=== PATIENT | female | born 1965 | race Caucasian/White ===

== ENCOUNTER 2019-04-27 14:25 | Observation (INO) | payer BC ==
[2019-04-27] MEDS ORDERED: Sodium Chloride 0.9% 1000 ML 1,000 ML IV STA ×2 (14:58)
[2019-04-27] MEDS ORDERED: NovoLIN R IV ONE (14:58)
[2019-04-27] MEDS ORDERED: NOVOLIN R INSULIN (FOR DRIPS)** 100 UNITS in Sodium Chloride 0.9% 100 ML IVPB 100 ML IV SCH (15:00)
[2019-04-27] MEDS ORDERED: Sodium Chloride 0.9% 1000 ML 2,000 ML ONE (15:04)
[2019-04-27] MEDS ORDERED: NovoLIN R ONE (15:04)
[2019-04-27 15:13] LABS: VBG BASE EXCESS 1.6 (-2.0-2.0); VBG HCO3- 27.7 meq/L (22-28); VBG HEMOGLOBIN 15.6; VBG O2 SATURATION 76.2 (95-100); VBG POTASSIUM 4.2 (3.5-5.1); VBG pH 7.37 (7.32-7.42)
[2019-04-27 15:15] LABS: VBG CARBOXYHEMOGLOBIN 12.3 % T HGB (0.0-6.9)
[2019-04-27 15:18] LABS: MAGNESIUM 1.7 mg/dL (1.6-2.3); PHOSPHOROUS 5.3 mg/dL (2.5-4.5)
[2019-04-27] MEDS ORDERED: ROCEPHIN 1 Gm-D5w 50 ml Bag** 1 G/50 ML IVPB IV STA (15:52)
[2019-04-27] MEDS ORDERED: Zithromax 500 MG/ 250 ML NaCl Premix 500 MG/250 ML IVPB IV STA (15:52)
[2019-04-27] MEDS ORDERED: ROCEPHIN 1 Gm-D5w 50 ml Bag** 1 G/50 ML IVPB IV ONE (16:02)
[2019-04-27] MEDS ORDERED: Zithromax 500 MG/ 250 ML NaCl Premix 500 MG/250 ML IVPB IV ONE (16:02)
--- NOTE | 2019-04-27 16:11 | ERPHSYRPT ---
- History of Present Illness Time Seen by Provider: 04/27/19 14:45 Source: patient Exam Limitations: clinical condition (P) Patient Subjective Stated Complaint: went to dr. nobles for check up today and had blood work done. was told her blood sugar was very high. Triage Nursing Assessment: ambulated to room per self. skin w/d, color normal, resp easy. a/o times four. Physician History: PATIENT WITH A HISTORY OF TYPE 2 DIABETES, DIAGNOSED SINCE 2011 AND HAS BEEN OUT OF HER INSULIN OVER PAST YEAR, 38 [employer] YEAR [employer] COMPLAINS OF POLYDIPSIA AND POLYURIA OVER THE PAST SEVERAL DAYS. ALSO COMPLAINS OF A PRODUCTIVE COUGH YELLOW SPUTUM. DENIES FEVER, CHILLS DYSPNEA, NAUSEA OR EMESIS. Timing/Duration: day(s) Severity: severe Modifying Factors: Improves With: nothing Associated Symptoms: cough, other (POLYURIA, POLYDIPSIA) Allergies/Adverse Reactions: No Known Drug Allergies Allergy (Verified 04/27/19 14:43) Home Medications: No Reportable Medications [No Reported Medications] 04/27/19 [History] Hx Tetanus, Diphtheria Vaccination/Date Given: Yes Hx Influenza Vaccination/Date Given: Yes Hx Pneumococcal Vaccination/Date Given: No - Review of Systems Constitutional: No Fever, No Chills Eyes: No Symptoms Ears, Nose, & Throat: No Symptoms Respiratory: Cough, No Dyspnea Cardiac: No Chest Pain, No Edema, No Syncope Abdominal/Gastrointestinal: No Abdominal Pain, No Nausea, No Vomiting, No Diarrhea Genitourinary Symptoms: Other (POLYURIA\), No Dysuria Musculoskeletal: No Back Pain, No Neck Pain Skin: No Rash Neurological: No Dizziness, No Focal Weakness, No Sensory Changes Psychological: No Symptoms Endocrine: No Symptoms All Other Systems: Reviewed and Negative - Past Medical History Pertinent Past Medical History: Yes Cardiac History: Hypertension Respiratory History: COPD Endocrine Medical History: Diabetes Type II - Past Surgical History Past Surgical History: No - Social History Smoking Status: Current every day smoker How long have you smoked: 43 Exposure to second hand smoke: Yes Drug Use: none Patient Lives Alone: No - Female History Hx Now: No - Nursing Vital Signs Nursing Vital Signs: Initial Vital Signs Temperature 97.8 F 04/27/19 14:35 Pulse Rate 91 H 04/27/19 14:35 Respiratory Rate 16 04/27/19 14:35 Blood Pressure 167/98 04/27/19 14:35 O2 Sat by Pulse Oximetry 95 04/27/19 14:35 Pain Scale Pain Intensity 0 - Physical Exam General Appearance: no apparent distress, alert Eye Exam: PERRL/EOMI, eyes nml inspection Ears, Nose, Throat Exam: normal ENT inspection, TMs normal, pharynx normal, moist mucous membranes Neck Exam: normal inspection, non-tender, supple, full range of motion Respiratory Exam: normal breath sounds, lungs clear, No respiratory distress Cardiovascular Exam: regular rate/rhythm, normal heart sounds, normal peripheral pulses Gastrointestinal/Abdomen Exam: soft, normal bowel sounds, No tenderness, No mass Back Exam: normal inspection, normal range of motion, No CVA tenderness, No vertebral tenderness Extremity Exam: normal inspection, normal range of motion, pelvis stable Neurologic Exam: alert, oriented x 3, cooperative, normal mood/affect, nml cerebellar function, nml station & gait, sensation nml, No motor deficits Skin Exam: normal color, warm, dry, No rash Lymphatic Exam: No adenopathy SpO2 Interpretation: normal SpO2: 91 - Radiology Exams Chest X-ray Interpretation: Interpreted by me (COPD, NO EVIDENCE OF INFILTRATES) Ordered Tests: Active Orders 24 hr Category Date Time Status CHEST 1 VIEW (PORTABLE) Stat Exams 04/27/19 15:34 Completed BLOOD CULTURE Stat Lab 04/27/19 16:10 Received Glucose Stat Lab 04/27/19 14:58 Completed MAGNESIUM Stat Lab 04/27/19 14:58 Completed PHOSPHOROUS Stat Lab 04/27/19 14:58 Completed VENOUS BLOOD GAS Stat Lab 04/27/19 15:03 Completed Transfer Order Routine Transfer 04/27/19 Ordered Medication Summary Generic Name Dose Route Start Last Admin Trade Name Freq PRN Reason Stop Dose Admin Insulin Human Regular 100 101 mls @ 5.05 mls/hr 04/27/19 15:00 04/27/19 15:20 units/ Sodium Chloride IV 05/27/19 14:59 5 units/hr .Q20H JENNIFER 5.05 mls/hr Administration 5 UNITS/HR Discontinued Medications Generic Name Dose Route Start Last Admin Trade Name Freq PRN Reason Stop Dose Admin Sodium Chloride 1,000 mls @ 999 mls/hr 04/27/19 14:58 04/27/19 16:19 Sodium Chloride 0.9% 1000 Ml IV 04/27/19 15:58 Infused .Q1H1M STA Infusion Sodium Chloride 1,000 mls @ 999 mls/hr 04/27/19 14:58 04/27/19 16:35 Sodium Chloride 0.9% 1000 Ml IV 04/27/19 15:58 Infused .Q1H1M STA Infusion Sodium Chloride Confirm 04/27/19 15:04 Sodium Chloride 0.9% 1000 Ml Administered 04/27/19 15:05 Dose 2,000 mls @ ud .ROUTE .STK-MED ONE Ceftriaxone Sodium/Dextrose 1 g in 50 mls @ 100 mls/hr 04/27/19 15:52 16:07 Rocephin 1 Gm-D5w 50 Ml Bag IV 04/27/19 16:21 100 ml/hr STAT STA 100 mls/hr Administration Azithromycin 500 mg in 250 mls @ 250 mls/hr 04/27/19 15:52 Zithromax 500 Mg/ 250 Ml Nacl Premix IV 04/27/19 16:51 STAT STA Azithromycin Confirm 04/27/19 16:02 Zithromax 500 Mg/ 250 Ml Nacl Premix Administered 04/27/19 16:03 Dose 500 mg in 250 mls @ ud IV .STK-MED ONE Ceftriaxone Sodium/Dextrose Confirm 04/27/19 16:02 Rocephin 1 Gm-D5w 50 Ml Bag Administered 04/27/19 16:03 Dose 1 g in 50 mls @ ud IV .STK-MED ONE Insulin Human Regular 10 unit 04/27/19 14:58 04/27/19 15:06 Novolin R IV 04/27/19 14:59 10 unit STAT ONE Administration Insulin Human Regular Confirm 04/27/19 15:04 Novolin R Administered 04/27/19 15:05 Dose 10 unit .ROUTE .STK-MED ONE Lab/Rad Data: Laboratory Results 04/27/19 04/27/19 Range/Units 15:03 14:58 pO2/FiO2 Ratio 21.0 % VBG pH 7.37 (7.32-7.42) VBG pCO2 at Pat Temp 48 (42-55) mm/Hg VBG pO2 at Pat Temp 30 (25-40) mm/Hg VBG HCO3 27.7 (22-28) meq/L VBG O2 Sat (Marvin) 76.2 L (95-100) VBG Base Excess 1.6 (-2.0-2.0) VBG Hemoglobin 15.6 VBG Carboxyhemoglobin 12.3 H* (0.0-6.9) % T HGB POC Potassium 4.2 (3.5-5.1) Glucose 864 H* (74-106) mg/dL Phosphorus 5.3 H (2.5-4.5) mg/dL Magnesium 1.7 (1.6-2.3) mg/dL - Progress Progress: improved Progress Note: 04/27/19 16:11, GLUCOSE UPON ARRIVAL TO EMERGENCY ROOM -864, VENOUS PH-7.34 SERUM GLUCOSE 981, GIVEN IV HUMULIN INSULIN 10 UNITS IV, FOLLOWED BY HUMULIN REGULAR INSULIN INFUSION 5UNITS/HR, AFTER 2 SETS OF BLOOD CULTURES ADMINISTERED ROCEPHIN 1GM AND ZITHROMAX 500MG IVPB 04/27/19 17:[address] Mckeon (DISCUSSED WITH DR MCKEON AT 1705 FOR OBSERVATION) - Departure Departure Disposition: Observation Clinical Impression: HYPERGLYCEMIA HYPEROSMOLARIC NONKETOIC, EXACERBATION COPD Condition: Stable Critical Care Time: Yes Critical Care Time(excluding separately billable procedures): ___ minutes (30) Referrals: SHIV NOBLES [Primary Care Provider] -
--- NOTE | 2019-04-27 16:14 | XRAY ---
Indication: Cough. High blood sugar. Comparison: September 29, 2016. Portable chest demonstrates normal heart and lungs. Bony thorax intact again with mild degenerative changes. No new/acute findings.
[2019-04-27] MEDS ORDERED: Sodium Chloride 0.9% 1000 ML 1,000 ML ONE (17:55)
[2019-04-27] MEDS ORDERED: Sodium Chloride 0.9% 1000 ML 1,000 ML IV SCH ×2 (18:00→18:14)
[2019-04-27] MEDS ORDERED: TYLENOL 325 MG PO PRN (18:14)
[2019-04-27 18:51] LABS: ANION GAP 11.3 MEQ/L (5-15); BLOOD UREA NITROGEN 19 mg/dL (7-17); CHLORIDE 103 mmol/L (98-107); Calcium 8.3 mg/dL (8.4-10.2); Carbon Dioxide 23 mmol/L (22-30); Creatinine 1 0.38 mg/dL (0.52-1.04); Glucose 331 mg/dL (74-106); Potassium 3.2 mmol/L (3.5-5.1); SODIUM 133 mmol/L (137-145)
[2019-04-27] MEDS: DUONEB 0.5-3 MG/3 ml Neb IH SCH ×2 (19:42→23:32)
[2019-04-27 22:45] LABS: ANION GAP 8.4 MEQ/L (5-15); BLOOD UREA NITROGEN 17 mg/dL (7-17); CHLORIDE 105 mmol/L (98-107); Calcium 8.1 mg/dL (8.4-10.2); Carbon Dioxide 26 mmol/L (22-30); Creatinine 1 0.42 mg/dL (0.52-1.04); Glucose 267 mg/dL (74-106); Potassium 3.8 mmol/L (3.5-5.1); SODIUM 136 mmol/L (137-145)
[2019-04-28] MEDS ORDERED: Lantus Insulin SQ SCH (01:30)
[2019-04-28] MEDS ORDERED: Dextrose 5% -0.45 NaCl 1000 ML 1,000 ML IV SCH (01:30)
[2019-04-28 03:28] LABS: Hematocrit 37.9 % (35-47); Hemoglobin 13.2 gm/dl (12.0-16.0); Mean Cell Volume 90.5 fl (78-100); Mean Corpuscular Hemoglobin 31.5 pg (26-32); Mean Corpuscular Hgb Concent. 34.8 g/dl (32-36); Mean Platelet Volume 9.3 fl (6-9.5); Platelet Count 325 K/mm3 (150-450); Red Blood Count 4.19 M/mm3 (4.1-5.4); Red Cell Distribution Width 12.6 % (11.5-14.0); White Blood Count 8.1 K/mm3 (4.0-10.5)
[2019-04-28 03:40] LABS: ANION GAP 7.7 MEQ/L (5-15); BLOOD UREA NITROGEN 16 mg/dL (7-17); CHLORIDE 107 mmol/L (98-107); Calcium 7.9 mg/dL (8.4-10.2); Carbon Dioxide 24 mmol/L (22-30); Creatinine 1 0.32 mg/dL (0.52-1.04); Glucose 159 mg/dL (74-106); Potassium 3.5 mmol/L (3.5-5.1); SODIUM 136 mmol/L (137-145)
[2019-04-28] MEDS: DUONEB 0.5-3 MG/3 ml Neb IH SCH ×2 (03:42→07:11)
[2019-04-28 06:42] LABS: BLOOD UREA NITROGEN 14 mg/dL (7-17); CHLORIDE 108 mmol/L (98-107); Calcium 8.1 mg/dL (8.4-10.2); Carbon Dioxide 24 mmol/L (22-30); Creatinine 1 0.32 mg/dL (0.52-1.04); Glucose 183 mg/dL (74-106); Potassium 3.5 mmol/L (3.5-5.1); SODIUM 136 mmol/L (137-145)
[2019-04-28] MEDS: NovoLOG Insulin SQ PRN ×2 (08:50→11:50)
--- NOTE | 2019-04-28 09:05 | PCM.SSS ---
History of Present Illness - Chief Complaint Chief Complaint: HYPERGLYCEMIC HYPEROSMOLARIC NON-KETOC COMA History of Present Illness: is a 54 year old female pt of mine from [facility] with DM II uncontrolled, diabetic peripheral neuropathy, and HTN who was admitted last night through ER with BS > 800. She had been without insurance and off insulin for a year; came to see me in office yesterday and labs were ordered. When BS was elevated she was directed to ER. She had not been doing accuchecks at home because it always read "HI" - she lost 34 lb in the past few months and has had polyuria and polydipsia at home. She was started on some rocephin/zithromax for her cough; will go ahead and treat as likely COPD exacerbation. Overnight her BS corrected on the insulin drip; was < 200 this morning so IV fluids changed to D5 1/2 NS at 100cc/hr. Will stop that now. She is very concerned about getting to work tonight; her electrolytes have been stable. Started levemir this morning, will start at 20 units BID and go from there, with humalog prn sliding scale. She is to f/u with me next week; had an apt scheduled with me in 3-4 wks and I would like her to keep that as well. - Review of Systems Constitutional: Weight Loss Ears, Nose, & Throat: Nose Congestion, Nose Discharge Respiratory: Cough Abdominal/Gastrointestinal: Appetite Changes Genitourinary Symptoms: Frequency Neurological: Parasthesia Psychological: Anxiety All Other Systems: Reviewed and Negative Medications & Allergies Home Medications: Home Medication List Albuterol Sulfate [Ventolin Hfa] 18 gm IH QID PRN #1 [email or web address] 04/28/19 [Rx] Doxycycline Hyclate 100 mg PO BID #18 tablet 04/28/19 [Rx] Allergies/Adverse Reactions: Allergies Allergy/AdvReac Type Severity Reaction Status Date / Time No Known Drug Allergies Allergy Verified 04/27/19 14:43 - Past Medical History Past Medical History: Yes Neurological History: No Pertinent History ENT History: No Pertinent History Cardiac History: Hypertension Respiratory History: COPD Endocrine Medical History: Diabetes Type II Musculoskelatal History: No Pertinent History GI Medical History: No Pertinent History History: No Pertinent History Pyscho-Social History: No Pertinent History Reproductive Disorders: No Pertinent History - Female History Are you now?: No - Past Surgical History Past Surgical History: No - Social History Smoking Status: Current every day smoker How long have you smoked: 43 Exposure to second hand smoke: Yes Alcohol: Rarely Drug Use: marijuana - Physical Exam Vital Signs: Vital Signs - 24 hr Temp Pulse Resp BP Pulse Ox 04/28/19 08:00 89 04/28/19 07:56 97.6 F 71 20 105/62 95 04/28/19 04:00 98.3 F 73 16 121/68 98 04/28/19 03:42 70 16 98 04/28/19 00:01 78 04/28/19 00:00 98.3 F 78 18 90/60 94 L 04/27/19 23:33 77 18 94 L 04/27/19 20:00 98.4 F 78 16 125/70 96 04/27/19 19:52 97 04/27/19 19:43 75 17 97 04/27/19 18:54 97.8 F 80 20 97/61 96 04/27/19 17:30 98.0 F 80 18 133/81 99 04/27/19 17:25 91 L 04/27/19 16:36 78 16 138/70 96 04/27/19 15:23 89 20 143/81 91 L 04/27/19 14:35 97.8 F 91 H 16 167/98 95 General Appearance: no apparent distress, alert, thin Neurologic Exam: oriented x 3, cooperative Ears, Nose, Throat Exam: moist mucous membranes Neck Exam: normal inspection Respiratory Exam: normal breath sounds, lungs clear, No crackles/rales, No rhonchi, No wheezing Cardiovascular Exam: regular rate/rhythm, normal heart sounds, No murmur Gastrointestinal/Abdomen Exam: soft, normal bowel sounds, No tenderness, No distention, No mass Back Exam: normal inspection, No rash Extremity Exam: normal inspection, No pedal edema, No swelling Skin Exam: normal color, warm, dry, No rash Results - Labs Lab/Micro Results: Accuchecks Accucheck Value: 154 Accucheck Value: 139 Accucheck Value: 184 Accucheck Value: 346 Accucheck Value: 346 Accucheck Value: 232 Accucheck Value: 237 Accucheck Value: 237 Accucheck Value: 309 Accucheck Value: 338 Lab Results-Last 24 Hours 04/27/19 04/27/19 04/27/19 Range/Units 14:58 15:03 18:30 WBC (4.0-10.5) K/mm3 RBC (4.1-5.4) M/mm3 Hgb (12.0-16.0) gm/dl Hct (35-47) % MCV (78-100) fl MCH (26-32) pg MCHC (32-36) g/dl RDW (11.5-14.0) % Plt Count (150-450) K/mm3 MPV (6-9.5) fl pO2/FiO2 Ratio 21.0 % VBG pH 7.37 (7.32-7.42) VBG pCO2 at Pat Temp 48 (42-55) mm/Hg VBG pO2 at Pat Temp 30 (25-40) mm/Hg VBG HCO3 27.7 (22-28) meq/L VBG O2 Sat (Marvin) 76.2 L (95-100) VBG Base Excess 1.6 (-2.0-2.0) VBG Hemoglobin 15.6 VBG Carboxyhemoglobin 12.3 H* (0.0-6.9) % T HGB POC Potassium 4.2 (3.5-5.1) Sodium 133 L D (137-145) mmol/L Potassium 3.2 L D (3.5-5.1) mmol/L Chloride 103 D (98-107) mmol/L Carbon Dioxide 23 (22-30) mmol/L Anion Gap 11.3 (5-15) MEQ/L BUN 19 H (7-17) mg/dL Creatinine 0.38 L (0.52-1.04) mg/dL Estimated GFR > 60.0 ML/MIN Glucose 864 H* 331 H (74-106) mg/dL Calcium 8.3 L (8.4-10.2) mg/dL Phosphorus 5.3 H (2.5-4.5) mg/dL Magnesium 1.7 (1.6-2.3) mg/dL 04/27/19 04/28/19 04/28/19 Range/Units 22:25 03:36 03:36 WBC 8.1 (4.0-10.5) K/mm3 RBC 4.19 (4.1-5.4) M/mm3 Hgb 13.2 (12.0-16.0) gm/dl Hct 37.9 (35-47) % MCV 90.5 (78-100) fl MCH 31.5 (26-32) pg MCHC 34.8 (32-36) g/dl RDW 12.6 (11.5-14.0) % Plt Count 325 (150-450) K/mm3 MPV 9.3 (6-9.5) fl pO2/FiO2 Ratio % VBG pH (7.32-7.42) VBG pCO2 at Pat Temp (42-55) mm/Hg VBG pO2 at Pat Temp (25-40) mm/Hg VBG HCO3 (22-28) meq/L VBG O2 Sat (Marvin) (95-100) VBG Base Excess (-2.0-2.0) VBG Hemoglobin VBG Carboxyhemoglobin (0.0-6.9) % T HGB POC Potassium (3.5-5.1) Sodium 136 L 136 L (137-145) mmol/L Potassium 3.8 3.5 (3.5-5.1) mmol/L Chloride 105 107 (98-107) mmol/L Carbon Dioxide 26 24 (22-30) mmol/L Anion Gap 8.4 7.7 (5-15) MEQ/L BUN 17 16 (7-17) mg/dL Creatinine 0.42 L 0.32 L (0.52-1.04) mg/dL Estimated GFR > 60.0 > 60.0 ML/MIN Glucose 267 H 159 H (74-106) mg/dL Calcium 8.1 L 7.9 L (8.4-10.2) mg/dL Phosphorus (2.5-4.5) mg/dL Magnesium (1.6-2.3) mg/dL 04/28/19 Range/Units 06:29 WBC (4.0-10.5) K/mm3 RBC (4.1-5.4) M/mm3 Hgb (12.0-16.0) gm/dl Hct (35-47) % MCV (78-100) fl MCH (26-32) pg MCHC (32-36) g/dl RDW (11.5-14.0) % Plt Count (150-450) K/mm3 MPV (6-9.5) fl pO2/FiO2 Ratio % VBG pH (7.32-7.42) VBG pCO2 at Pat Temp (42-55) mm/Hg VBG pO2 at Pat Temp (25-40) mm/Hg VBG HCO3 (22-28) meq/L VBG O2 Sat (Marvin) (95-100) VBG Base Excess (-2.0-2.0) VBG Hemoglobin VBG Carboxyhemoglobin (0.0-6.9) % T HGB POC Potassium (3.5-5.1) Sodium 136 L (137-145) mmol/L Potassium 3.5 (3.5-5.1) mmol/L Chloride 108 H (98-107) mmol/L Carbon Dioxide 24 (22-30) mmol/L Anion Gap 8.0 (5-15) MEQ/L BUN 14 (7-17) mg/dL Creatinine 0.32 L (0.52-1.04) mg/dL Estimated GFR > 60.0 ML/MIN Glucose 183 H (74-106) mg/dL Calcium 8.1 L (8.4-10.2) mg/dL Phosphorus (2.5-4.5) mg/dL Magnesium (1.6-2.3) mg/dL Accuchecks Accucheck Value: 154 Accucheck Value: 139 Accucheck Value: 184 Accucheck Value: 346 Accucheck Value: 346 Accucheck Value: 232 Accucheck Value: 237 Accucheck Value: 237 Accucheck Value: 309 Accucheck Value: 338 - Radiology Impressions Radiology Exams & Impressions: Radiology Procedures Category Date Time Status CHEST 1 VIEW (PORTABLE) Stat Exams 04/27/19 15:34 Completed - Other Procedures and Tests Respiratory Therapy 04/27/19 18:14 Oxygen Nasal Cannula 2 lpm 04/27/19 19:42 Smoking Cessation Education ONCE 04/27/19 19:43 Peak Expiratory Flow Rate ONCE Respiratory Therapy Assessment DAILY Assessment/Plan (1) Diabetes mellitus Current Visit: Yes Status: Acute Qualifiers: Diabetes mellitus type: type 2 Diabetes mellitus longterm insulin use: with ferry terminal agent use Diabetes mellitus complication status: with neurologic complications Diabetes mellitus complication detail: with polyneuropathy Qualified Code(s): E11.42 - Type 2 diabetes mellitus with diabetic polyneuropathy; Z79.4 - MCC (current) use of insulin Assessment & Plan: With hyperosmolar nonketotic state on admission. Has corrected quickly. Ideally, would like for her to stay for insulin adjustment, however, she is new at work, on probationary period, and the only reason she can now afford medical care including insulin is because of her job. I think she is stable and it is reasonable to discharge her to home today. Start with levemir 20 units BID and increase as needed. Humalog sliding scale - will need sliding scale sheet to take home. She is also starting back on victoza, which helped quite a bit in the past. She is to f/u with me in 1 week. Code(s): E11.9 - TYPE 2 DIABETES MELLITUS WITHOUT COMPLICATIONS (2) Diabetic peripheral neuropathy Current Visit: Yes Status: Chronic Code(s): E11.42 - TYPE 2 DIABETES MELLITUS WITH DIABETIC POLYNEUROPATHY (3) Cough Current Visit: Yes Status: Acute Assessment & Plan: will tx as for COPD exacerbation; doesn't have dx yet but ferry terminal agent smoker. Code(s): R05 - [facility] Hospital Summary - Hospital Course Hospital Course: is a 54 year old female pt of mine from [facility] with DM II uncontrolled, diabetic peripheral neuropathy, and HTN who was admitted last night through ER with BS > 800. She had been without insurance and off insulin for a year; came to see me in office yesterday and labs were ordered. When BS was elevated she was directed to ER. She had not been doing accuchecks at home because it always read "HI" - she lost 34 lb in the past few months and has had polyuria and polydipsia at home. She was started on some rocephin/zithromax for her cough; will go ahead and treat as likely COPD exacerbation. Overnight her BS corrected on the insulin drip; was < 200 this morning so IV fluids changed to D5 1/2 NS at 100cc/hr. Will stop that now. She is very concerned about getting to work tonight; her electrolytes have been stable. Started levemir this morning, will start at 20 units BID and go from there, with humalog prn sliding scale. She is to f/u with me next week; had an apt scheduled with me in 3-4 wks and I would like her to keep that as well. - Vitals & Intake/Output Vital Signs: Vital Signs Temperature 97.6 F 04/28/19 07:56 Pulse Rate 89 04/28/19 08:00 Respiratory Rate 20 04/28/19 07:56 Blood Pressure 105/62 04/28/19 07:56 O2 Sat by Pulse Oximetry 95 04/28/19 07:56 Intake & Output: Intake & Output 04/25/19 04/26/19 04/27/19 04/28/19 11:59 11:59 11:59 11:59 Intake Total 1315 Balance 1315 Weight 50.1 kg - Lab Result Diagrams: 04/28/19 03:36 04/28/19 06:29 Lab Results-Last 24 Hrs: Accuchecks Accucheck Value: 154 Accucheck Value: 139 Accucheck Value: 184 Accucheck Value: 346 Accucheck Value: 346 Accucheck Value: 232 Accucheck Value: 237 Accucheck Value: 237 Accucheck Value: 309 Accucheck Value: 338 Lab Results-Last 24 Hours 04/27/19 04/27/19 04/27/19 Range/Units 14:58 15:03 18:30 WBC (4.0-10.5) K/mm3 RBC (4.1-5.4) M/mm3 Hgb (12.0-16.0) gm/dl Hct (35-47) % MCV (78-100) fl MCH (26-32) pg MCHC (32-36) g/dl RDW (11.5-14.0) % Plt Count (150-450) K/mm3 MPV (6-9.5) fl pO2/FiO2 Ratio 21.0 % VBG pH 7.37 (7.32-7.42) VBG pCO2 at Pat Temp 48 (42-55) mm/Hg VBG pO2 at Pat Temp 30 (25-40) mm/Hg VBG HCO3 27.7 (22-28) meq/L VBG O2 Sat (Marvin) 76.2 L (95-100) VBG Base Excess 1.6 (-2.0-2.0) VBG Hemoglobin 15.6 VBG Carboxyhemoglobin 12.3 H* (0.0-6.9) % T HGB POC Potassium 4.2 (3.5-5.1) Sodium 133 L D (137-145) mmol/L Potassium 3.2 L D (3.5-5.1) mmol/L Chloride 103 D (98-107) mmol/L Carbon Dioxide 23 (22-30) mmol/L Anion Gap 11.3 (5-15) MEQ/L BUN 19 H (7-17) mg/dL Creatinine 0.38 L (0.52-1.04) mg/dL Estimated GFR > 60.0 ML/MIN Glucose 864 H* 331 H (74-106) mg/dL Calcium 8.3 L (8.4-10.2) mg/dL Phosphorus 5.3 H (2.5-4.5) mg/dL Magnesium 1.7 (1.6-2.3) mg/dL 04/27/19 04/28/19 04/28/19 Range/Units 22:25 03:36 03:36 WBC 8.1 (4.0-10.5) K/mm3 RBC 4.19 (4.1-5.4) M/mm3 Hgb 13.2 (12.0-16.0) gm/dl Hct 37.9 (35-47) % MCV 90.5 (78-100) fl MCH 31.5 (26-32) pg MCHC 34.8 (32-36) g/dl RDW 12.6 (11.5-14.0) % Plt Count 325 (150-450) K/mm3 MPV 9.3 (6-9.5) fl pO2/FiO2 Ratio % VBG pH (7.32-7.42) VBG pCO2 at Pat Temp (42-55) mm/Hg VBG pO2 at Pat Temp (25-40) mm/Hg VBG HCO3 (22-28) meq/L VBG O2 Sat (Marvin) (95-100) VBG Base Excess (-2.0-2.0) VBG Hemoglobin VBG Carboxyhemoglobin (0.0-6.9) % T HGB POC Potassium (3.5-5.1) Sodium 136 L 136 L (137-145) mmol/L Potassium 3.8 3.5 (3.5-5.1) mmol/L Chloride 105 107 (98-107) mmol/L Carbon Dioxide 26 24 (22-30) mmol/L Anion Gap 8.4 7.7 (5-15) MEQ/L BUN 17 16 (7-17) mg/dL Creatinine 0.42 L 0.32 L (0.52-1.04) mg/dL Estimated GFR > 60.0 > 60.0 ML/MIN Glucose 267 H 159 H (74-106) mg/dL Calcium 8.1 L 7.9 L (8.4-10.2) mg/dL Phosphorus (2.5-4.5) mg/dL Magnesium (1.6-2.3) mg/dL 04/28/19 Range/Units 06:29 WBC (4.0-10.5) K/mm3 RBC (4.1-5.4) M/mm3 Hgb (12.0-16.0) gm/dl Hct (35-47) % MCV (78-100) fl MCH (26-32) pg MCHC (32-36) g/dl RDW (11.5-14.0) % Plt Count (150-450) K/mm3 MPV (6-9.5) fl pO2/FiO2 Ratio % VBG pH (7.32-7.42) VBG pCO2 at Pat Temp (42-55) mm/Hg VBG pO2 at Pat Temp (25-40) mm/Hg VBG HCO3 (22-28) meq/L VBG O2 Sat (Marvin) (95-100) VBG Base Excess (-2.0-2.0) VBG Hemoglobin VBG Carboxyhemoglobin (0.0-6.9) % T HGB POC Potassium (3.5-5.1) Sodium 136 L (137-145) mmol/L Potassium 3.5 (3.5-5.1) mmol/L Chloride 108 H (98-107) mmol/L Carbon Dioxide 24 (22-30) mmol/L Anion Gap 8.0 (5-15) MEQ/L BUN 14 (7-17) mg/dL Creatinine 0.32 L (0.52-1.04) mg/dL Estimated GFR > 60.0 ML/MIN Glucose 183 H (74-106) mg/dL Calcium 8.1 L (8.4-10.2) mg/dL Phosphorus (2.5-4.5) mg/dL Magnesium (1.6-2.3) mg/dL Micro Results-Entire Visit: Accuchecks Accucheck Value: 154 Accucheck Value: 139 Accucheck Value: 184 Accucheck Value: 346 Accucheck Value: 346 Accucheck Value: 232 Accucheck Value: 237 Accucheck Value: 237 Accucheck Value: 309 Accucheck Value: 338 - Radiology Exams Ordered Rad Exams-Entire Visit: Radiology Procedures Category Date Time Status CHEST 1 VIEW (PORTABLE) Stat Exams 04/27/19 15:34 Completed - Procedures and Test Procedures and Tests throughout Hospitalization: Therapy Orders & Screens 04/27/19 18:14 Oxygen Nasal Cannula 2 lpm Comment: 04/27/19 19:42 Smoking Cessation Education ONCE Comment: Diagnosis: HYPERGLYCEMIC HYPEROSMOLARIC NON-KETOC COMA Smoking Status: Current every day smoker How long have you smoked: 43 Have you smoked in the past 12 months: Yes Approximately how many cigarettes per day: 20 Do you dip or chew tobacco: No 04/27/19 19:43 Peak Expiratory Flow Rate ONCE Comment: Reason For Exam: Diagnosis: HYPERGLYCEMIC HYPEROSMOLARIC NON-KETOC COMA Respiratory Therapy Assessment DAILY Comment: Diagnosis: HYPERGLYCEMIC HYPEROSMOLARIC NON-KETOC COMA - Discharge Disposition: Home, Self-Care Condition: Stable Prescriptions: New Doxycycline Hyclate 100 mg PO BID #18 tablet Albuterol Sulfate [Ventolin Hfa] 18 gm IH QID PRN #1 [email or web address] PRN Reason: Cough Additional Instructions: Fill [facility] medications at [facility]! They should be waiting for you. On the levemir, you will now be taking 20 units twice a day. We will increase as needed. Let me know if your meter is still reading "HI" (call the office, stop by, send a fax, or best yet sign up for the patient portal and send a message to me directly!). See me next week as follow up for hospital stay. Also, see me in 3-4 weeks as previously scheduled. Follow up with: SHIV CORONA [Primary Care Provider] - 1 Week
[2019-04-28] MEDS ORDERED: ROCEPHIN 1 Gm-D5w 50 ml Bag** 1 G/50 ML IVPB IV SCH (10:00)
[2019-04-28] MEDS ORDERED: Zithromax 500 MG/ 250 ML NaCl Premix 500 MG/250 ML IVPB IV SCH (10:00)
[2019-04-28 11:41] LABS: ANION GAP 9.5 MEQ/L (5-15); BLOOD UREA NITROGEN 14 mg/dL (7-17); CHLORIDE 104 mmol/L (98-107); Carbon Dioxide 23 mmol/L (22-30); Creatinine 1 0.36 mg/dL (0.52-1.04); Glucose 466 mg/dL (74-106); Potassium 3.7 mmol/L (3.5-5.1); SODIUM 132 mmol/L (137-145)
[2019-04-28 12:10] VITALS: PULSE 74
[2019-04-28 12:34] VITALS: BP 115/75; O2SAT 97
== END 2019-04-28 12:45 | disposition home or self-care (01) ==
LOC: ED 14:25 → ICU 18:02
PROVIDERS: ADMIT Family Medicine; ATTEND Family Medicine
DX: E11.00 Type 2 diabetes mellitus with hyperosmolarity without nonketotic hyperglycemic-hyperosmolar coma (NKHHC) (principal); E11.42 Type 2 diabetes mellitus with diabetic polyneuropathy; J44.1 Chronic obstructive pulmonary disease with (acute) exacerbation; R05 Cough; I10 Essential (primary) hypertension; R20.2 Paresthesia of skin; F41.9 Anxiety disorder, unspecified; F17.200 Nicotine dependence, unspecified, uncomplicated; Z79.899 Other long term (current) drug therapy
CPT/HCPCS: 36000; 36415; 71045; 80048; 82805; 82947; 82962; 83735; 84100; 85027; 87040; 93268; 94150; 94640; 94760; 96360; 96361; 96365; 96367; 96374; 96375; 99285; G0378; J0456; J0696; J1815; A9270-GY